=== PATIENT | female | born 1995 | race Caucasian/White ===

== ENCOUNTER 2017-11-08 04:00 | Inpatient (IN) ==
[2017-11-08] MEDS ORDERED: miSOPROStol 25 MCG TABLET VG PRN (04:14)
[2017-11-08] MEDS ORDERED: Ringers Solution, Lactated 1,000 ML ONE (04:15)
[2017-11-08] MEDS ORDERED: Famotidine 20 MG/2 ML VIAL IVP PRN (04:19)
[2017-11-08] MEDS ORDERED: *HR* Nalbuphine 10 MG/ML AMPUL IVP PRN (04:19)
[2017-11-08] MEDS ORDERED: Naloxone 0.4 MG/ML INJ IVP PRN (04:19)
[2017-11-08] MEDS ORDERED: Ringers Solution, Lactated 1,000 ML IVC SCH (04:30)
[2017-11-08 04:55] LABS: Basophils % 0.1 %; Eosinophils # 0.1 K/mcL (0.0-0.6); Eosinophils % 0.8 %; Immature Granulocytes % 0.3 % (0-4); Lymphocytes # 2.5 K/mcL (0.6-4.6); Lymphocytes % 27.2 %; Mean Corpuscular HGB Conc 35.3 g/dL (31.6-35.5); Mean Corpuscular Hemoglobin 32.9 pg (28.0-33.3); Mean Corpuscular Volume 93.2 fL (83.0-100.0); Mean Platelet Volume 11.1 fL (9.4-12.4); Monocytes # 0.7 K/mcL (0.0-1.3); Monocytes % 7.8 %; Neutrophils # 5.8 K/mcL (1.6-8.9); Platelet Count 205 K/mcL (140-400); Red Blood Count 3.65 M/mcL (3.82-4.97); Segmented Neutrophils % 63.8 %
[2017-11-08 05:12] LABS: Amphetamine Screen,Urine Negative ng/mL (Cutoff=1000); Barbiturate Screen,Urine Negative ng/mL (Cutoff=200); Benzodiazepines Screen,Urine Negative ng/mL (Cutoff=200); Cannabinoid Screen,Urine Negative ng/mL (Cutoff = 50); Cocaine Screen,Urine Negative ng/mL (Cutoff= 300); Opiate Screen,Urine Negative ng/mL (Cutoff=300); Phencyclidine Screen,Urine Negative ng/mL (Cutoff=25)
[2017-11-08 05:13] LABS: Protein/Creatinine Ratio,Urine 0.22 mg/mg (0.00-0.20)
[2017-11-08 05:13] LABS: Alanine Aminotransferase 8 Units/L (7-52); Aspartate Amino Transferase 12 Units/L (13-39); BUN/Creatinine Ratio 15 (6-26); Blood Urea Nitrogen 9 mg/dL (6-20); Lactate Dehydrogenase 122 Units/L (140-271); Uric Acid 3.9 mg/dL (2.3-7.6); eGFR For Non-African Americans > 60 (> 60)
--- NOTE | 2017-11-08 07:06 | OB/GYN History & Physical ---
Date of Encounter: 11/08/17 Time of Encounter: 07:04 Assessment and Plan (1) Postmaturity , 40-42 weeks gestation Current visit: Yes Status: Acute Admit for IOL per Dr. Santana. Pt has received cytotec vaginally and has progressed from 1cm to 3cm. Continue to monitor. Epidural if requested. Anticipate . History of Present Illness HPI: Ms. Rich is a 22 year old female presenting at 40w1d for IOL. She has a history of a heart murmur for which she was seen by MFM. echo normal. No problems with the . Good FM. O positive Rubella immune Serologies negative GBS negative Past Med Surg Social Fam HX - Past Medical History Medical history: asthma Additional medical history: asthma, heart murmor (states closed back up), Psychiatric history: no psych history - Past Surgical History Surgical History: no surgical history - Social History Smoking Status: Former smoker Smokeless Tobacco Status: No Alcohol use: none Drug use: none - Family History Mother Adopted: No Family Member Ethnicity: Non- Living Status: Still Living Hx Family Cardiac Disorders: Yes (open heart surgery) Hx Family Respiratory Disorders: No Hx Family Cancer: No Hx Family GI Disorders: No Hx Family Endocrine Disorder: No Hx Family Neuromuscular Disorders: No Hx Family Neurologic Disorders: No Hx Family HEENT Disorders: No Hx Family Autoimmune Disorders: No Obstetrical History - Pregnancies : 1 Medications and Allergies Ferrous Sulfate [High Potency Iron] 27 mg PO DAILY 09/18/17 [History] Vits #90/Iron Fum/FA [ Formula Tablet] 1 each PO DAILY [History] 3 Allergy/AdvReac Type Severity Reaction Status Date / Time No Known Allergies Allergy Verified 11/04/17 04:50 Review of System OB All systems PM: reviewed and no additional remarkable complaints except as stated Exam - Constitutional Constitutional: well developed, well nourished, no acute distress - HEENT HEENT: Mucus Membranes Moist - Lungs Respiratory exam: CTAB - Cardiovascular Cardiovascular exam: RRR - Abdomen Abdomen: Present: gravid, non tender - Extremities Extremities exam: normal inspection - Vagina Vagina: Present: normal moisture - Cervix Dilation: 3 Effacement: 80 Station: -1 - Anus/Rectum Anus/Rectum: Present: normal perianal skin Results Result Diagrams: 11/08/17 04:05 11/08/17 04:05 Abnormal lab results RBC 3.65 M/mcL (3.82-4.97) L 11/08/17 04:05 Hct 34.0 % (35.3-44.9) L 11/08/17 04:05 AST 12 Units/L (13-39) L 11/08/17 04:05 Lactate Dehydrogenase 122 Units/L (140-271) L 11/08/17 04:05 Protein/Creatinin Ratio 0.22 mg/mg (0.00-0.20) H 11/08/17 04:00 All other labs normal. - VTE Reasons for not Prescribing Prophylaxis: Treatment not Indicated - Low risk for VTE
[2017-11-08] MEDS ORDERED: Famotidine 20 MG TABLET PO SCH (07:30)
[2017-11-08] MEDS ORDERED: EPHEDrine 50 MG/ML VIAL IVP PRN (07:57)
[2017-11-08] MEDS ORDERED: Epidural Premix (fent/bupiv) 110 ML EP SCH (08:00)
--- NOTE | 2017-11-08 08:00 | Anesthesia Evaluation PreOp ---
Date of Encounter: 11/08/17 Time of Encounter: 07:24 - Past History Planned Operation: vaginal del, G1 induction Cardiac History: Other (heart murmur no functional limitations recent echo no issues according to patient) Pulmonary History: Asthma SMUDGER History: Other (chronic back pain with "'locking up" according to patient when bending over, no other positional dependant radiculopathy. however during the lock up she does have pain to hips and down both legs.) Other Medical History: GERD Anesthesia History: No Prior Anesthetic Complications, Past Anesthesia Alcohol Use: none Drug use: none Medications and Allergies Ferrous Sulfate [High Potency Iron] 27 mg PO DAILY 09/18/17 [History] Vits #90/Iron Fum/FA [ Formula Tablet] 1 each PO DAILY [History] 3 Allergy/AdvReac Type Severity Reaction Status Date / Time No Known Allergies Allergy Verified 11/04/17 04:50 Anesthesia Results - Labs 11/08/17 04:05 11/08/17 04:05 Anesthesia Exam - HEENT Pupil (Motor): Pupils equal Mallampati: II Teeth: Normal Oral Opening: Greater than 3 - SMUDGER LOC: Oriented SMUDGER Motor: Normal RUE, Normal LUE, Normal RLE, Normal LLE, Normal Face SMUDGER Sensory: Normal: RUE, LUE, RLE, LLE, Face - Cardiac Rhythm: Regular Murmur: None - Pulmonary Breath Sounds: bilateral Clear Respiratory Effort: Symmetrical Anesthesia Assess/Plan ASA Score: 2 Modified [place] Scale for Level of Consciousness: Cooperative, oriented, and tranquil Anesthetic Plan: General, Regional (does not desire at this time.) Monitoring Plan: Standard Monitors Recovery Plan: PACU
[2017-11-08] MEDS ORDERED: Oxytocin 20 units/ LR 1000 mL 20 UNIT/1,000 ML BAG IVC ONE (11:14)
--- NOTE | 2017-11-08 12:51 | OB/GYN Procedure Note ---
Delivery - Delivery Date: 11/08/17 Provider: Faye Santana Intrapartum events: meconium Delivery induction: misoprostol Delivery augmentation: rupture of membranes Delivery monitor: external FHT, external uterine Anesthesia: none Quantitated Blood Loss: 200 - (s) A Infant Delivery Date: 11/08/17 Infant Delivery Time: 11:05 Presentation: vertex Position: YADIEL Gender: Female Viability: Viable Weight Gram: 3.14 kg at 1 minute: 9 at 5 mins: 9 Shoulder Dystocia: not encountered - Repair Laceration Description: Periurethral - Disposition Mom disposition: stable in LDR disposition: stable in LDR
[2017-11-08] MEDS ORDERED: Oxytocin 20 units/ LR 1000 mL 20 UNIT/1,000 ML BAG IVC SCH (14:05)
[2017-11-08] MEDS ORDERED: Measles/Mumps/Rubella Vacc 0.5 ML VIAL SQ PRN (14:05)
[2017-11-08] MEDS ORDERED: Acetaminophen 325 MG TABLET PO PRN (14:05)
[2017-11-08] MEDS: Ibuprofen 600 MG TABLET PO PRN (22:01)
[2017-11-09 04:39] LABS: Basophils % 0.2 %; Eosinophils % 0.3 %; Hematocrit 29.2 % (35.3-44.9); Immature Granulocytes % 0.3 % (0-4); Lymphocytes # 2.6 K/mcL (0.6-4.6); Lymphocytes % 20.6 %; Mean Corpuscular HGB Conc 34.6 g/dL (31.6-35.5); Mean Corpuscular Hemoglobin 31.9 pg (28.0-33.3); Mean Corpuscular Volume 92.1 fL (83.0-100.0); Mean Platelet Volume 11.4 fL (9.4-12.4); Monocytes # 1.1 K/mcL (0.0-1.3); Monocytes % 8.7 %; Neutrophils # 8.9 K/mcL (1.6-8.9); Platelet Count 198 K/mcL (140-400); Red Blood Count 3.17 M/mcL (3.82-4.97); Red Cell Distribution Width 13.2 % (11.5-14.5); Segmented Neutrophils % 69.9 %
[2017-11-09 04:49] LABS: Hemoglobin 10.1 g/dL (11.5-15.4)
--- NOTE | 2017-11-09 08:30 | Discharge Summary ---
Date of Encounter: 11/09/17 Time of Encounter: 08:28 - Discharge Diagnosis (1) Vaginal delivery Priority: Primary Status: Acute Comments: S/P Vaginal Delivery Day 1 Pain is well controlled Lochia is light and without clots VSS Tolerating regular diet, passing flatus Voiding without difficulty Discharge home today (2) Postmaturity , 40-42 weeks gestation Priority: Primary Status: Acute (3) Contraception management Priority: Secondary Status: Acute Qualifiers: Contraceptive encounter type: initial prescription Contraceptive type: implantable subdermal Qualified Code(s): Z30.017 - Encounter for initial prescription of implantable subdermal contraceptive - Discharge Medications Prescriptions: Ibuprofen [Motrin] 600 mg PO Q6HR PRN #30 tablet PRN Reason: Cramping Docusate [Colace] 100 mg PO BID #30 capsule Ferrous Sulfate 325 mg PO 0800 #90 tablet Home Medications: Acetaminophen [Tylenol] 650 mg PO Q6HR PRN tablet 11/09/17 [Rx] Docusate [Colace] 100 mg PO BID #30 capsule 11/09/17 [Rx] Ferrous Sulfate 325 mg PO 0800 #90 tablet 11/09/17 [Rx] Ibuprofen [Motrin] 600 mg PO Q6HR PRN #30 tablet 11/09/17 [Rx] Vit/FA 1 each PO DAILY tablet 11/09/17 [Rx] Allergies/Adverse Reactions: 3 Allergy/AdvReac Type Severity Reaction Status Date / Time No Known Allergies Allergy Verified 11/04/17 04:50 Data Procedures and tests throughout hospitalization: Laboratory Tests 11/08/17 11/08/17 11/08/17 04:00 04:05 04:05 WBC 9.0 RBC 3.65 L Hgb 12.0 Hct 34.0 L MCV 93.2 MCH 32.9 MCHC 35.3 RDW 13.0 Plt Count 205 MPV 11.1 Immature Gran % 0.3 Seg Neutrophils % 63.8 Lymphocytes % 27.2 Monocytes % 7.8 Eosinophils % 0.8 Basophils % 0.1 Neutrophils # 5.8 Lymphocytes # 2.5 Monocytes # 0.7 Eosinophils # 0.1 Basophils # 0.0 BUN Creatinine Est GFR ( Amer) Est GFR (Non-Af Amer) BUN/Creatinine Ratio Uric Acid AST ALT Lactate Dehydrogenase Urine Creatinine 60 Protein/Creatinin Ratio 0.22 H Urine Total Protein 13 Urine Opiates Screen Negative Ur Barbiturates Screen Negative Ur Phencyclidine Scrn Negative Ur Amphetamines Screen Negative U Benzodiazepines Scrn Negative Urine Cocaine Screen Negative U Marijuana (THC) Screen Negative Ur Drug Screen Interp See Below 11/08/17 11/09/17 04:05 03:57 WBC 12.7 H RBC 3.17 L Hgb 10.1 L D Hct 29.2 L MCV 92.1 MCH 31.9 MCHC 34.6 RDW 13.2 Plt Count 198 MPV 11.4 Immature Gran % 0.3 Seg Neutrophils % 69.9 Lymphocytes % 20.6 Monocytes % 8.7 Eosinophils % 0.3 Basophils % 0.2 Neutrophils # 8.9 Lymphocytes # 2.6 Monocytes # 1.1 Eosinophils # 0.0 Basophils # 0.0 BUN 9 Creatinine 0.60 Est GFR ( Amer) > 60 Est GFR (Non-Af Amer) > 60 BUN/Creatinine Ratio 15 Uric Acid 3.9 AST 12 L ALT 8 Lactate Dehydrogenase 122 L Urine Creatinine Protein/Creatinin Ratio Urine Total Protein Urine Opiates Screen Ur Barbiturates Screen Ur Phencyclidine Scrn Ur Amphetamines Screen U Benzodiazepines Scrn Urine Cocaine Screen U Marijuana (THC) Screen Ur Drug Screen Interp Labs on day of discharge: Labs from last 24 hours 11/09/17 03:57 WBC 12.7 H RBC 3.17 L Hgb 10.1 L D Hct 29.2 L MCV 92.1 MCH 31.9 MCHC 34.6 RDW 13.2 Plt Count 198 MPV 11.4 Immature Gran % 0.3 Seg Neutrophils % 69.9 Lymphocytes % 20.6 Monocytes % 8.7 Eosinophils % 0.3 Basophils % 0.2 Neutrophils # 8.9 Lymphocytes # 2.6 Monocytes # 1.1 Eosinophils # 0.0 Basophils # 0.0 Date of admission: 11/08/17 04:01 Primary care physician: Ameya Murcia MD Consults: 11/08/17 14:05 Consult to Orientation And Mobility Instructor [CONS] Routine Comment: Vaginal delivery, consult needed Discharging clinician: Maxine Pascual Anticipated date of discharge: 11/09/17 - Patient Status Disposition: Home, Self-Care Condition: Good Overall status at discharge: patient is back to baseline - Discharge Instructions Follow Up With: Ameya Murcia MD [Primary Care Provider] - Faey Santana MD [Partnered Physician] - - Diet and Activity Activity: increase activity as tolerated Diet: advance to your usual diet, regular diet Hospital Course Reason for admission: induction of labor Delivery: Episiotomy: none Laceration: other (periurethral) Other procedures: none complications: none Discharge diagnosis: IUP at term delivered, post term preg-delivered [place] baby: female Time Attestation: Total time spent providing and/or coordinating discharge services: Time Spent: Less than 30 minutes Exam - Constitutional Vitals: Temp Pulse Resp BP Pulse Ox 98 F 88 16 151/85 97 11/09/17 04:05 11/09/17 04:05 11/09/17 04:05 11/09/17 04:05 11/09/17 04:05 General appearance IM: A&O X 3, pleasant, no acute distress - Respiratory Respiratory exam: Present: CTAB - Cardiovascular Cardiovascular exam IM: Present: +S1, +S2 - GI/Abdominal GI/Abdominal exam IM: soft - Rectal Rectal exam: deferred - Uterine Tone: Firm Uterus Position: At Umbilicus, Midline - Extremities Exam Extremities exam IM: Absent: calf tenderness, pedal edema - Neurological Exam Neurological exam: alert, oriented X3 - Attending Attestation I examined this patient and my medical decision-making was reviewed with the Resident Physician. I agree with the documented findings, disposition and treatment plan as described except to the extent set forth below. Chase Pascual CNM
[2017-11-09 08:54] VITALS: BP 123/74
[2017-11-09] MEDS ORDERED: Prenatal Vit/FA 1 EACH TABLET PO SCH (09:00)
[2017-11-09] MEDS ORDERED: Etonogestrel 68 MG IMPLANT IL ONE (09:23)
[2017-11-09] MEDS ORDERED: Lidocaine/EPI 1:100k 2% 20 ML VIAL INFILT ONE (09:24)
[2017-11-09] MEDS: Ibuprofen 600 MG TABLET PO PRN (09:39)
== END 2017-11-09 14:00 | disposition home or self-care (01) | DRG 560 ==
LOC: 1NENULAB 04:01 → 1NENUOBS 13:45
PROVIDERS: ADMIT Student in an Organized Health Care Education/Training Program; ATTEND Student in an Organized Health Care Education/Training Program

== ENCOUNTER → 2019-08-23 18:15 | Observation (INO) ==
[2019-08-23 16:38] LABS: Bacteria,Urine Few per hpf (None-Few); Bilirubin,Urine Negative (Negative); Blood,Urine Moderate (Negative); Budding Yeast,Urine Few per hpf (None Seen); Clarity,Urine Turbid (Clear); Color,Urine Light-Yellow (Yellow); Glucose,Urine (UA) Normal (Normal); Ketones,Urine Negative (Negative); Leukocyte Esterase,Urine Trace (Negative); Mucus,Urine Few per lpf (None-Few); Nitrite,Urine Negative (Negative); Protein,Urine Trace mg/dL (Neg-Trace); RBC,Urine TNTC per hpf (0-3); Specific Gravity,Urine 1.012 (1.010-1.025); Squamous Epithelial Cell,Urine Moderate per hpf (None-Few); Urobilinogen,Urine Normal (Normal)
== END | disposition home or self-care (01) ==
LOC: 1NENULAB
PROVIDERS: ADMIT Obstetrics & Gynecology; ATTEND Obstetrics & Gynecology

== ENCOUNTER 2019-09-02 05:53 | Inpatient (IN) ==
[2019-09-02] MEDS ORDERED: Penicillin G Potassium 5,000,000 UNIT in 0.9 % Sodium Chloride Mini Bag 100 ML IVPB ONE (05:56)
[2019-09-02] MEDS ORDERED: Naloxone 0.4 MG/ML INJ IVP PRN (05:56)
[2019-09-02] MEDS ORDERED: miSOPROStoL 25 MCG TABLET VG PRN (05:56)
[2019-09-02] MEDS ORDERED: Lidocaine 1% 20 ML MDV INFILT PRN (05:56)
[2019-09-02] MEDS ORDERED: Famotidine 20 MG/2 ML VIAL IVP PRN (05:56)
[2019-09-02] MEDS ORDERED: Metoclopramide 10 MG/2 ML VIAL IVP PRN (05:56)
[2019-09-02] MEDS ORDERED: Azithromycin 500 MG in 0.9 % Sodium Chloride 250 ML IVPB ONE (05:56)
[2019-09-02] MEDS ORDERED: Ringers Solution, Lactated 1,000 ML IVC SCH (06:00)
[2019-09-02] MEDS ORDERED: Ondansetron 4 MG/2 ML VIAL IVP PRN (06:00)
[2019-09-02 06:25] LABS: Basophils % 0.1 %; Eosinophils % 0.2 %; Hematocrit 30.8 % (35.3-44.9); Hemoglobin 10.3 g/dL (11.5-15.4); Immature Granulocytes % 0.5 % (0-4); Lymphocytes # 1.4 K/mcL (0.6-4.6); Lymphocytes % 10.7 %; Mean Corpuscular HGB Conc 33.4 g/dL (31.6-35.5); Mean Corpuscular Hemoglobin 29.8 pg (28.0-33.3); Mean Platelet Volume 10.5 fL (9.4-12.4); Monocytes # 0.8 K/mcL (0.0-1.3); Monocytes % 5.8 %; Neutrophils # 10.7 K/mcL (1.6-8.9); Platelet Count 234 K/mcL (140-400); Red Blood Count 3.46 M/mcL (3.82-4.97); Segmented Neutrophils % 82.7 %
[2019-09-02 06:28] LABS: Amphetamine Screen,Urine Negative ng/mL (Cutoff=1000); Barbiturate Screen,Urine Negative ng/mL (Cutoff=200)
[2019-09-02 06:29] LABS: Benzodiazepines Screen,Urine Negative ng/mL (Cutoff=300); Cannabinoid Screen,Urine Negative ng/mL (Cutoff = 50); Cocaine Screen,Urine Negative ng/mL (Cutoff= 300); Opiate Screen,Urine Negative ng/mL (Cutoff=300); Phencyclidine Screen,Urine Negative ng/mL (Cutoff=25)
[2019-09-02] MEDS ORDERED: Acetaminophen 325 MG TABLET PO ONE (07:28)
[2019-09-02] MEDS ORDERED: Oxytocin 20 units/ LR 1000 mL 20 UNIT/1,000 ML BAG IVC SCH ×2 (07:30→18:43)
[2019-09-02] MEDS ORDERED: miSOPROStoL 25 MCG TABLET PO SCH ×2 (08:46→12:00)
[2019-09-02] MEDS: Penicillin G Potassium 2,500,000 UNIT/105 ML UNIT IVPB SCH ×2 (10:48→16:07)
[2019-09-02] MEDS: *HR* FentaNYL (PF) 100 MCG/2 ML VIAL IVP PRN ×2 (13:53→15:39)
[2019-09-02] MEDS ORDERED: Ibuprofen 600 MG TABLET PO PRN (18:43)
[2019-09-02] MEDS ORDERED: Acetaminophen 325 MG TABLET PO PRN (18:43)
[2019-09-02] MEDS ORDERED: Measles/Mumps/Rubella Vacc 0.5 ML VIAL SQ PRN (18:43)
[2019-09-02] MEDS ORDERED: Rho Immune Globulin 1,500 UNIT SYRINGE IM PRN (18:43)
[2019-09-03 06:39] LABS: Basophils % 0.2 %; Eosinophils % 0.2 %; Hematocrit 29.3 % (35.3-44.9); Hemoglobin 9.6 g/dL (11.5-15.4); Immature Granulocytes % 0.3 % (0-4); Lymphocytes # 1.8 K/mcL (0.6-4.6); Lymphocytes % 15.7 %; Mean Corpuscular HGB Conc 32.8 g/dL (31.6-35.5); Mean Corpuscular Hemoglobin 29.8 pg (28.0-33.3); Mean Platelet Volume 10.6 fL (9.4-12.4); Monocytes # 0.9 K/mcL (0.0-1.3); Monocytes % 7.6 %; Neutrophils # 8.7 K/mcL (1.6-8.9); Platelet Count 203 K/mcL (140-400); Red Blood Count 3.22 M/mcL (3.82-4.97); White Blood Count 11.5 K/mcL (4.3-11.1)
[2019-09-03 08:37] VITALS: BP 111/72
[2019-09-03] MEDS ORDERED: Prenatal Vit/FA 1 EACH TABLET PO SCH ×2 (09:00)
== END 2019-09-03 17:00 | disposition home or self-care (01) | DRG 560 ==
LOC: 1NENULAB 05:53 → 1NENUOBS 18:31
PROVIDERS: ADMIT Student in an Organized Health Care Education/Training Program; ATTEND Student in an Organized Health Care Education/Training Program